=== PATIENT | male | born 1965 | race Caucasian/White ===

== ENCOUNTER 2020-09-14 08:15 | Inpatient (IN) | payer BC, SELFPAY ==
[2020-09-14] VITALS (11 sets, daily range): BP systolic 117–166; BP diastolic 60–118; PULSE 76–102; RESP 18–24; TEMP 36.2–36.8; O2SAT 98–100; BMI 29.4
--- NOTE | ~2020-09-14 | CT_ITS ---
EXAMINATION: CT brain wo con EXAM DATE: 09/14/2020 09:10 INDICATION: Syncope. TECHNIQUE: Spiral CT of the head was performed without contrast. Axial, coronal and sagittal images were reviewed. The dose-length product (DLP) for this examination was 605.33 mGy-cm. The exposure w as tailored according to patient size, and iterative reconstruction (ASIR) was used as additional dos e reduction technique. There is no prior study for comparison. FINDINGS: There is no acute intraparenchymal hemorrhage. No evidence of intraparenchymal brain mass lesion. No evidence of acute infarction. Please note that initial head CT has limited sensitivity f or small or acute infarctions. There is mild periventricular and subcortical hypodensity, nonspecific but probably related to small vessel ischemic disease. There is intracranial carotid arteriosclero sis. There are no extra-axial collections. There is no mass effect or midline shift. The orbits ar e unremarkable. Soft tissue is unremarkable. Partial ethmoidectomies with mild to moderate mucoperi osteal thickening in residual air cells. The mastoid air cells are well aerated. IMPRESSION: 1. No acute intracranial findings. 2. [id number] mucoperiosteal thickening. Reviewed, dictated and finalized at location A. IMPRESSION: 1. No acute intracranial findings. 2. [id number] mucoperiosteal thickening.
--- NOTE | ~2020-09-14 | XR_ITS ---
EXAMINATION: XR chest 1V EXAM DATE: 09/14/2020 09:14 INDICATION: Syncope. TECHNIQUE: Frontal and lateral projections of the chest obtained and reviewed. There is no prior sohail dy for comparison. FINDINGS: The lungs are clear. There are no pleural effusions. The cardiomediastinal silhouette is within normal limits. There is no pneumothorax suspected. Cervical fusion hardware. 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 IMPRESSION: No acute cardiopulmonary findings. Reviewed, dictated and finalized at location A.
--- NOTE | 2020-09-14 08:25 | ECG_ITS ---
Measurements Intervals [place] Rate: 103 P: 37 MI: 180 QRS: 165 QRSD: 158 T: 69 QT: 365 QTc: 480 Interpretive Statements SINUS TACHYCARDIA RIGHT BUNDLE BRANCH BLOCK LEFT POSTERIOR FASCICULAR BLOCK BASELINE ARTIFACT- I, II, AVR, AVL ABNORMAL ECG Electronically Signed On 09-16-2020 13:33:16 CDT by Johnny Batista D.O.
[2020-09-14] MEDS: INSULIN HUMAN REGULAR (*BKC) 100 UNITS/ML 10 UNITS IV PUSH (08:57)
[2020-09-14] MEDS: SODIUM CHLORIDE 0.9% IV 1,000 ML 150 ML IV CONT (09:00)
[2020-09-14 09:01] LABS: Basophils Absolute Auto 0.1 K/mm3 (0.0-0.1); Basophils Percent Auto 0.5 % (0.2-1.2); Eosinophils Absolute Auto 0.1 K/mm3 (0-0.3); Hematocrit 45.8 % (42.0-52.0); Hemoglobin 14.4 g/dL (14.0-18.0); Immature Granulocyte Absolute 0.03 K/mm3 (0.00-0.031); Immature Granulocyte Percent A 0.3 % (0-0.5); Lymphocytes Absolute Auto 3.02 K/mm3 (0.9-3.2); Lymphocytes Percent Auto 28.2 % (18.3-44.2); Mean Corpuscular HGB Conc 31.4 g/dl (32-36); Mean Corpuscular Hemoglobin 25.9 pg (26-34); Mean Corpuscular Volume 82.4 fl (80-100); Mean Platelet Volume 11.5 fl (7.4-10.4); Monocytes Absolute Auto 0.7 K/mm3 (0.1-0.6); Monocytes Percent Auto 6.3 % (2.6-8.5); Neutrophils Absolute Auto 6.8 K/mm3 (1.3-6.7); Neutrophils Percent Auto 63.7 % (45.5-73.1); Platelet Count Result 356 k/mm3 (150-375); Red Blood Count 5.56 M/mm3 (4.6-6.20); White Blood Count 10.7 K/mm3 (4.5-10.0)
[2020-09-14 09:11] LABS: INR 0.9
[2020-09-14 09:14] LABS: Alanine Aminotransferase 13 U/L (4-50); Albumin Level 4.2 g/dL (3.5-5.1); Alkaline Phosphatase 116 U/L (38-126); Anion Gap 11 mmol/L (8-16); Aspartate Amino Transferase 18 U/L (17-59); Bilirubin,Total 0.5 mg/dL (0.2-1.3); Blood Urea Nitrogen 12 mg/dL (9-20); Carbon Dioxide 23 mmol/L (22-30); Chloride 101 mmol/L (98-107); Estimated CRCL calculation 75 ml/min; Estimated Glomerular Filt Rate > 60; Glucose 542 mg/dL (75-110); Potassium 3.9 mmol/L (3.4-5.0); Sodium 135 mmol/L (137-145)
[2020-09-14 09:24] LABS: Troponin I < 0.012 ng/mL (0.000-0.034)
[2020-09-14 09:40] LABS: Glucose Point of Care > 500 (65-105)
[2020-09-14 09:40] LABS: Glucose Point of Care > 500 (65-105)
--- NOTE | 2020-09-14 09:54 | ED.SYNCOPE ---
HPI - Syncope General Chief Complaint: Syncope Stated Complaint: CP,SYNCOPE Time Seen by Provider: 09/14/20 08:28 Source: patient Mode of arrival: EMS Limitations: no limitations History of Present Illness HPI narrative: 55-year-old with a history of diabetes was brought in from work with a complaint of having a syncopal episode. Patient states that he was doing some paperwork he passed out for unknown duration of time. He denied any headache. However he stated he had mild chest discomfort which is improved now. He denies any abdominal pain, nausea or vomiting or diarrhea or black color or blood in the stool. Denies any previous such episodes. He also mentions that he is diabetic and he has not taken his Metformin and Glucotrol for approximately 1 week. He states he is very noncompliant with his medication. Denies alcohol use or drug use. Related Data Allergies Allergy/AdvReac Type Severity Reaction Status Date / Time garlic Allergy Unknown Verified 09/14/20 08:42 Penicillins Allergy Itching Verified 09/14/20 08:42 pepper (genus Capsicum) Allergy Unknown Verified 09/14/20 08:42 tramadol Allergy Itching Verified 09/14/20 08:42 Review of Systems Review of Systems: All systems reviewed & are unremarkable except as noted in HPI and below Constitutional: Constitutional: Reports no additional constitutional complaints Eyes: Eyes: Reports no additional eye complaints ENT: Reports system reviewed and no additional complaints, except as documented Cardiovascular: Cardiovascular: Reports no additional cardiovascular complaints Respiratory: Respiratory: Reports no additional respiratory complaints Gastrointestinal: Gastrointestinal: Reports no additional gastrointestinal complaints Genitourinary: Genitourinary: Reports no additional male genitourinary complaints Musculoskeletal: Musculoskeletal: Reports no additional musculoskeletal complaints Neurologic: Reports system reviewed and no additional complaints, except as documented Exam Narrative: Exam Narrative: GENERAL: Well-appearing, well-nourished, and in no acute distress. HEAD: Normocephalic, atraumatic. EYES: PERRLA and EOMI. ENT: Nares clear, no rhinorrhea or epistaxis. Mucous membranes moist. Poor dental hygiene NECK: Supple. CHEST: Clear to auscultation. No respiratory distress. HEART: Regular rate and rhythm. No murmur heard. Normal peripheral pulses. ABDOMEN: Soft, nontender, nondistended, normal active bowel sounds. EXTREMITIES: Normal range of motion. No edema. SKIN: Warm, dry, no rash. NEURO: No focal deficits. Alert and oriented x3. PSYCH: Normal mood and affect. Course Course Emergency Course: Patient states he is very noncompliant with his medication. However is not in acute distress she is on the phone. I discussed the lab values with the patient. Even after IV insulin his sugars remained elevated so we will start him on IV insulin drip. I discussed with the hospitalist agreed to admit the patient. Vital Signs Vital signs: Vital Signs Temperature 36.8 C 09/14/20 08:29 Pulse Rate 102 H 09/14/20 08:29 Respiratory Rate 23 H 09/14/20 08:29 Blood Pressure 166/118 H 09/14/20 08:29 Pulse Oximetry 100 09/14/20 08:29 Temperature 36.8 C 09/14/20 08:29 Pulse Rate 87 09/14/20 10:02 Respiratory Rate 18 09/14/20 10:02 Blood Pressure 140/107 H 09/14/20 10:02 Pulse Oximetry 100 09/14/20 10:02 MDM - Syncope Lab Data Result diagrams: 09/14/20 08:49 09/14/20 08:49 Labs: Lab Results 09/14/20 09/14/20 09/14/20 Range/Units 08:48 08:49 08:49 WBC 10.7 H (4.5-10.0) K/mm3 RBC 5.56 (4.6-6.20) M/mm3 Hgb 14.4 (14.0-18.0) g/dL Hct 45.8 (42.0-52.0) % MCV 82.4 (80-100) fl MCH 25.9 L (26-34) pg MCHC 31.4 L (32-36) g/dl RDW 13.0 (11.5-14.5) % Plt Count 356 (150-375) k/mm3 MPV 11.5 H (7.4-10.4) fl Immature Gran % (Auto) 0.3 (0-0.5) % Neut %
[2020-09-14 10:10] LABS: Add Urine Microscopic? YES; Appearance Urine Clear (Clear); Bilirubin Urine Negative (Negative); Blood Urine Negative (Negative); Color Urine Yellow (Yellow); Glucose Urine UA 3+ mg/dL (Negative); Ketones Urine Trace mg/dL (Negative); Leukocyte Esterase Ur Negative LEU/UL (Negative); Mucus Urine Rare /lpf; Nitrate Urine Negative (Negative); Protein Urine 2+ mg/dL (Negative); RBC Urine 0-2 /hpf (0-2); Urobilinogen Urine Negative mg/dL (<2.0); WBC Urine 0-3 /hpf
[2020-09-14 10:21] LABS: Specific Grav Ur 1.032 (1.001-1.035)
[2020-09-14] MEDS: INSULIN HUMAN REGULAR (*BKC) 100 UNITS in SODIUM CHLORIDE 0.9% IV 99 ML 9.64 UNITS IV CONT (10:24)
[2020-09-14 11:32] LABS: Glucose Point of Care 477 (65-105)
--- NOTE | 2020-09-14 12:41 | PC.NURSE ---
Per verbal orders by Dr. Lin insulin drip to be stopped.
--- NOTE | 2020-09-14 12:51 | PC.NURSE ---
Called to give report on pt. Spoke with Maggi NAYLOR who states that per her charge nurse they can not accept pt because he is on an insulin drip. Informed Maggi that pt was taken off insulin drip @ 1242. Maggi states she will inform her charge nurse and left me know. Informed charge nurse Sonali of this.
[2020-09-14 12:52] LABS: Glucose Point of Care 233 (65-105)
--- NOTE | 2020-09-14 13:07 | PM.IMHP ---
H&P: HPI History of Present Illness Date/Time: 09/14/20 13:07 Chief Complaint: Syncope Narrative: This is a 55-year-old male with past medical history significant for type 2 diabetes mellitus controlled with diet and oral agents patient states that he is not compliant with his medication he does not take them regularly. Patient noted is 20 lb weight loss in the last month and a half or so, he was at work today while he was standing in printing some document at his office and he does not have not recollection of the events next time he woke up he was on an ambulance on the way to the hospital, there was no aura no prodromes, he states that he has been doing fairly okay he denies any fevers chills rigors nausea vomiting diarrhea or abdominal pain no polydipsia no polyphagia no polyuria however has had significant weight loss. Preliminary workup was significant for elevated blood sugar in the 500's. Review of Systems Review of Systems: Narrative: Patient presented to the emergency room after he was rushed to the hospital via EMS due to syncopal episode while he was at work he noticed some tremors Constitutional: Constitutional: Reports weight loss (20 lb in about a month or so) Eyes: Comments: No vision changes ENT: Comments: No earache no nose cons congestion no sore throat Cardiovascular: Comments: No chest pain no PND no orthopnea Respiratory: Comments: No shortness of breath no cough no sputum production Gastrointestinal: Comments: No nausea no vomiting no diarrhea no abdominal pain Musculoskeletal: Comments: No muscle aches or pains no joint pain Integumentary/Breasts: Comments: No rashes Neurologic: Comments: No sensorimotor deficit Endocrine: Comments: Weight loss Hematologic/Lymphatic: Comments: No lymphadenopathies Meds Home Medications and Allergies Allergies Allergy/AdvReac Type Severity Reaction Status Date / Time garlic Allergy Unknown Verified 09/14/20 08:42 Penicillins Allergy Itching Verified 09/14/20 08:42 pepper (genus Capsicum) Allergy Unknown Verified 09/14/20 08:42 tramadol Allergy Itching Verified 09/14/20 08:42 Vital Signs Vital Signs - 24 hr 09/14/20 08:29 09/14/20 10:02 09/14/20 10:29 Temperature 98.2 F Pulse Rate 102 H 87 85 Respiratory Rate 23 H 18 18 Blood Pressure 166/118 H 140/107 H 142/94 H Pulse Oximetry 100 100 100 Exam Narrative: Exam Narrative: Patient was brought to the hospital via EMS after he had a syncopal episode his work upon arrival to emergency room patient was found to have a blood glucose in the 500 which did not resolve initial does with insulin and was placed in insulin drip Const: General: comfortable, no acute distress, well developed, alert and awake Nutritional Appearance: average body habitus Orientation/consciousness: patient oriented x3 HENMT: Head: normal to inspection, normocephalic and atraumatic Ears: hearing grossly normal bilaterally Face and sinus: normal facial exam Eyes: General: appearance normal, both eyes and all related structures Pupils: Equal, round and reactive pupils present EOM: EOMs intact bilaterally Neck: Neck: full ROM, no lymphadenopathy and no JVD Thyroid: thyroid normal Lymphatic: no lymphadenopathy noted Resp: Effort & Inspection: normal respiratory effort and able to speak in complete sentences Auscultation: clear to auscultation bilaterally Cardio: Jugular venous distension: no JVD Rate: regular rate Rhythm: regular rhythm Heart sounds: S1 normal heart sound present and S2 normal heart sound present GI: GI Palp: Yes Soft to palpation and Yes No hepatosplenomegaly present : General: Yes deferred Skin: Rashes: no rashes Wounds: no wounds Neuro: General: patient oriented x3 and CN's II-XI intact bilaterally Cranial nerves: Yes CN's II-XII intact bilaterally and Yes Equal, round and reactive pupils present Cognition (Neuro): normal cognition Speech: normal speech Gait exam (Neuro): Normal gait present
[2020-09-14 14:02] LABS: Glucose Point of Care 152 (65-105)
--- NOTE | 2020-09-14 14:11 | ADMGEN ---
This patient, Peter Martin, was admitted to IMU Room 207-01. Patient/family oriented to hospital policies and general routines including ID bracelet, bed and alarms, visiting hours, pain management, procedures, bathroom and other care routines, personal items, smoking policy, room service/diet, and visiting hours. Information on how to activate the Rapid Response Team has been discussed. Patient/Family are encouraged to report perceived risks to care and to ask questions if they do not understand what they are told or what they should do.
[2020-09-14] MEDS: SODIUM CHLORIDE 0.9% IV 1,000 ML 125 ML IV CONT ×2 (14:21→23:00)
[2020-09-14 14:42] LABS: Anion Gap 6 mmol/L (8-16); Blood Urea Nitrogen 14 mg/dL (9-20); Calcium 8.6 mg/dL (8.4-10.2); Carbon Dioxide 27 mmol/L (22-30); Chloride 104 mmol/L (98-107); Estimated CRCL calculation 80 ml/min; Estimated Glomerular Filt Rate > 60; Glucose 156 mg/dL (75-110); Potassium 3.6 mmol/L (3.4-5.0); Sodium 137 mmol/L (137-145)
[2020-09-14 14:43] LABS: Hemoglobin A1C > 14.0 % (<5.7)
[2020-09-14 16:43] LABS: Glucose Point of Care 168 (65-105)
[2020-09-14 20:22] LABS: Glucose Point of Care 176 (65-105)
[2020-09-15] VITALS (11 sets, daily range): BP systolic 136–142; BP diastolic 81–86; PULSE 76–87; RESP 18–20; TEMP 36.3–36.7; O2SAT 97–100
[2020-09-15 08:05] LABS: Glucose Point of Care 219 (65-105)
[2020-09-15 08:29] LABS: Anion Gap 6 mmol/L (8-16); Basophils Percent Auto 0.4 % (0.2-1.2); Blood Urea Nitrogen 12 mg/dL (9-20); Calcium 8.3 mg/dL (8.4-10.2); Carbon Dioxide 24 mmol/L (22-30); Chloride 106 mmol/L (98-107); Eosinophils Absolute Auto 0.2 K/mm3 (0-0.3); Eosinophils Percent Auto 1.8 % (0-4.4); Estimated CRCL calculation 90 ml/min; Estimated Glomerular Filt Rate > 60; Glucose 234 mg/dL (75-110); Hematocrit 41.3 % (42.0-52.0); Hemoglobin 13.1 g/dL (14.0-18.0); Immature Granulocyte Absolute 0.03 K/mm3 (0.00-0.031); Immature Granulocyte Percent A 0.3 % (0-0.5); Lymphocytes Absolute Auto 2.62 K/mm3 (0.9-3.2); Lymphocytes Percent Auto 26.6 % (18.3-44.2); Mean Corpuscular HGB Conc 31.7 g/dl (32-36); Mean Corpuscular Hemoglobin 25.9 pg (26-34); Mean Corpuscular Volume 81.6 fl (80-100); Mean Platelet Volume 10.2 fl (7.4-10.4); Monocytes Absolute Auto 0.6 K/mm3 (0.1-0.6); Neutrophils Absolute Auto 6.4 K/mm3 (1.3-6.7); Neutrophils Percent Auto 64.9 % (45.5-73.1); Platelet Count Result 324 k/mm3 (150-375); Potassium 3.8 mmol/L (3.4-5.0); Red Blood Count 5.06 M/mm3 (4.6-6.20); Red Cell Distribution Width 12.9 % (11.5-14.5); Sodium 136 mmol/L (137-145); White Blood Count 9.9 K/mm3 (4.5-10.0)
[2020-09-15 08:38] LABS: Hemoglobin A1C > 14.0 % (<5.7)
[2020-09-15] MEDS: metFORMIN HCL 500 MG TABLET PO (09:57)
--- NOTE | 2020-09-15 12:54 | PM.DS ---
DS: Admitting Diagnosis Admitting Diagnosis Admitting Diagnosis: 1) Hyperosmolar hyperglycemic state (HHS): (2) Syncope: DS: Discharge Diagnosis Discharge Diagnosis (1) Diabetes mellitus: Code(s): E11.9 - Type 2 diabetes mellitus without complications Status: Acute Assessment and Plan: THE PATIENT STATED THAT HE HAS BEEN NONCOMPLIANT WITH HIS ORAL MEDICATIONS HE WAS RESTARTED ON HIS METFORMIN AND JANUVIA AND GIVEN A REFILL FOR A MONTH HE WILL FOLLOW-UP WITH HIS [employer] IN THE OUTPATIENT SETTING HEMOGLOBIN A1C WAS 14 % (2) Syncope: Qualifiers: Syncope type: unspecified Qualified Code(s): R55 - Syncope and collapse Code(s): R55 - Syncope and collapse Status: Acute Assessment and Plan: LIKELY SECONDARY TO HYPERGLYCEMIA AND DEHYDRATION (3) Hyperosmolar hyperglycemic state (HHS): Code(s): E11.00 - Type 2 diabetes mellitus with hyperosmolarity without nonketotic hyperglycemic-hyperosmolar coma (NKHHC); E11.65 - Type 2 diabetes mellitus with hyperglycemia Status: Acute Assessment and Plan: PATIENT WAS PLACED ON INSULIN DRIP RESOLVED DS: Summary Hospital Course Reason for hospitalization: SYNCOPE Hospital Course: THIS IS A 55-YEAR-OLD MALE WITH PAST MEDICAL HISTORY SIGNIFICANT FOR TYPE 2 DIABETES MELLITUS PATIENT WAS AT WORK WHEN HE PASSED OUT HE DOES NOT HAVE RECOLLECTION OF WHAT HAPPENED REMEMBERS WAKING UP ON ROUTE TO THE HOSPITAL IN THE AMBULANCE IN THE EMERGENCY ROOM HE WAS FOUND TO HAVE A BLOOD SUGAR IN THE 500'S AND WAS STARTED ON INSULIN DRIP. THESE RESOLVED. A HEMOGLOBIN A1C WAS 14%. PATIENT STATED THAT HE HAS NOT BEEN COMPLIANT WITH HIS MEDICATION HAS NOT BEEN TAKING IT FOR A WHILE. HE WAS RESTARTED ON METFORMIN AND JANUVIA AND WILL FOLLOW-UP IN THE OUTPATIENT SETTING WITH HIS [employer]. CONSULTS OBTAINED: NO CONSULTS PROCEDURES: NO PROCEDURES Status at Discharge Cognitive/behavioral status at discharge: AAOX3 Functional status at discharge: independent ambulation Time Spent with Patient Time attestation: Total time spent providing and/or coordinating discharge services: Exam Narrative: Exam Narrative: PATIENT IS LAYING IN BED WELL-APPEARING Const: General: comfortable, no acute distress, well developed, alert and awake Nutritional Appearance: average body habitus Orientation/consciousness: patient oriented x3 HENMT: Head: normal to inspection, normocephalic and atraumatic Ears: hearing grossly normal bilaterally Face and sinus: normal facial exam Eyes: General: appearance normal, both eyes and all related structures Pupils: Equal, round and reactive pupils present EOM: EOMs intact bilaterally Neck: Neck: full ROM, no lymphadenopathy and no JVD Thyroid: thyroid normal Lymphatic: no lymphadenopathy noted Resp: Effort & Inspection: normal respiratory effort and able to speak in complete sentences Auscultation: clear to auscultation bilaterally Cardio: Jugular venous distension: no JVD Rate: regular rate Rhythm: regular rhythm Heart sounds: S1 normal heart sound present and S2 normal heart sound present GI: GI Palp: Yes Soft to palpation and Yes No hepatosplenomegaly present : General: Yes deferred Skin: Rashes: no rashes Wounds: no wounds Neuro: General: patient oriented x3 and CN's II-XI intact bilaterally Cranial nerves: Yes CN's II-XII intact bilaterally and Yes Equal, round and reactive pupils present Cognition (Neuro): normal cognition Speech: normal speech Gait exam (Neuro): Normal gait present Motor exam (neuro): 5/5 motor strength present throughout Extrem: General: normal to inspection, full ROM, no joint enlargement and no pedal edema DS: Data Data Completed and Pending Completed studies during hospitalization: EXAMINATION: CT brain wo con EXAM DATE: 09/14/2020 09:10 INDICATION: Syncope. TECHNIQUE: Spiral CT of the head was performed without contrast. Axial, coronal and sag
== END 2020-09-15 13:29 | disposition home or self-care (01) | DRG 639 ==
LOC: ANHED 11:38 → ANHIMU 12:20
PROVIDERS: Admitting Provider Internal Medicine; Emergency Provider Family Medicine; PCP Internal Medicine Geriatric Medicine; Visit Provider Internal Medicine
DX: E11.00 Type 2 diabetes mellitus with hyperosmolarity without nonketotic hyperglycemic-hyperosmolar coma (NKHHC) (principal); R55 Syncope and collapse; Z91.14 Patient's other noncompliance with medication regimen; Z79.84 Long term (current) use of oral hypoglycemic drugs
CPT/HCPCS: 36415; 70450; 71045; 80048; 80053; 81001; 82948; 83036; 84484; 85025; 85380; 85610; 93005; 96361; 96365; 96376; 99285; A9270; J1815; J7030